=== PATIENT | female | born 1990 | race American Indian/Alaskan Native ===

== ENCOUNTER 2017-02-13 16:04 | Emergency (ER) | payer SELFPAY ==
[2017-02-13 17:46] VITALS: BP 127/84
== END 2017-02-14 05:15 | disposition left against medical advice (07) ==
LOC: ED 16:04
DX: R51 Headache (principal); Z53.21 Procedure and treatment not carried out due to patient leaving prior to being seen by health care provider

== ENCOUNTER 2017-02-14 22:17 | Emergency (ER) | payer SELFPAY ==
[2017-02-14 23:18] LABS: Basophils % (Auto) 2.2 % (0.0-1.8); Eosinophils % (Auto) 0.8 % (0.0-4.3); Hematocrit 26.7 % (30.3-42.9); Hemoglobin 8.4 gm/dl (10.1-14.3); Mean Corpuscular HGB Conc 32 % (30-34); Platelet Count 266 K/mm3 (140-440); Red Blood Count 3.98 M/mm3 (3.65-5.03); Red Cell Distribution Width 19.5 % (13.2-15.2); White Blood Count 5.5 K/mm3 (4.5-11.0)
[2017-02-14 23:36] LABS: Anion Gap 17 mmol/L; BUN/Creatinine Ratio 10; Blood Urea Nitrogen 7 mg/dL (7-17); Calcium 8.8 mg/dL (8.4-10.2); Carbon Dioxide 25 mmol/L (22-30); Chloride 102.9 mmol/L (98-107); Glucose 85 mg/dL (65-100); Potassium 3.9 mmol/L (3.6-5.0); Sodium 141 mmol/L (137-145)
[2017-02-14 23:40] LABS: Mean Corpuscular Hemoglobin 21 pg (28-32); Mean Corpuscular Volume 67 fl (79-97)
[2017-02-15 00:07] LABS: Bilirubin,Urine NEG (Negative); Blood,Urine NEG (Negative); Ketones,Urine NEG (Negative); Leukocyte Esterase,Urine MOD (Negative); Mucus,Urine FEW /HPF; Nitrite,Urine NEG (Negative); Protein,Urine <15 mg/dL mg/dL (Negative)
--- NOTE | 2017-02-15 00:17 | Cat Scan Report ---
FINAL REPORT PROCEDURE: CT HEAD/BRAIN WO CON TECHNIQUE: Computerized tomography of the head was performed without contrast material. HISTORY: Headache. COMPARISON: No prior studies are available for comparison. FINDINGS: Brain: Brain density appears normal. No evidence of intracranial hemorrhage. No parenchymal hemorrhage, mass lesions or mass effect are seen. No abnormal extraxial fluid collects or masses are seen. Ventricles: Ventricles are normal size and are midline. Bone Windows: No evidence of skull fracture. Paranasal sinuses: Visualized portions of the paranasal sinuses appear clear. Not all the paranasal sinuses are included on this exam. Mastoid air cells: Clear IMPRESSION: Negative unenhanced CT scan of the brain.
[2017-02-15] MEDS ORDERED: XYLOCAINE TOPICAL 4% TP ONE (08:03)
[2017-02-15] MEDS ORDERED: BENADRYL IV ONE (08:03)
[2017-02-15] MEDS ORDERED: MAGNESIUM SULFATE 2GM/50ML 2 GM/50 ML BAG IV ONE (08:03)
[2017-02-15] MEDS ORDERED: REGLAN IV ONE (08:03)
--- NOTE | 2017-02-15 08:06 | Emergency Department Report ---
ED Headache HPI - General Chief Complaint: Headache Stated Complaint: HEADACHE Time Seen by Provider: 02/15/17 07:47 Source: patient Exam Limitations: no limitations - History of Present Illness Initial Comments: This is a 26-year-old female. The patient is previously unknown to this provider. She does not have a primary care doctor locally, and she denies chronic medical conditions. She presents to the ER with headache. The headache has been present for 9 days. She reports the headache started suddenly 9 days ago, and has been constant. The headache was fairly sudden in onset, and is constant, and she reports this is the most intense headache of her life. She describes photophobia, no neck pain, no neck stiffness, no extremity weakness, or numbness. Patient indicates no trauma, and patient indicates that she does not have a chronic headache history, does not have a family history of aneurysms that she is aware of. Timing/Duration: 1 week, constant Quality: severe, constant Head Injury Location: global Recent Head Trauma: no recent headache/trauma Modifying Factors: worse with: exposure to light Associated Symptoms: denies: confusion, fatigue, facial pain, fever/chills, flushing, loss of consciousness, nasal congestion, nasal drainage, numbness in legs/feet, seizures, sinus infection, stiff neck, vision changes, weakness Allergies/Adverse Reactions: Allergies [place] And Derivatives Allergy (Verified 02/14/17 22:50) Hives Penicillins Allergy (Verified 02/14/17 22:50) Hives Home Medications: Ambulatory Orders Butalb/Acetamin/Caff 50-325-40 [Fioricet] 1 tab PO Q6HR PRN #20 tab 02/15/17 ED Review of Systems ROS: Stated complaint: HEADACHE Other details as noted in HPI Constitutional: malaise. denies: fever Eyes: eye pain ENT: denies: throat pain Respiratory: denies: cough Cardiovascular: denies: chest pain Gastrointestinal: denies: abdominal pain Genitourinary: denies: dysuria Musculoskeletal: denies: back pain Skin: denies: lesions Neurological: headache ED Past Medical Hx - Past Medical History Previous Medical History?: No - Surgical History Past Surgical History?: No - Social History Smoking Status: Former Smoker Substance Use Type: Alcohol - Medications Home Medications: Home Medications Medication Instructions Recorded Confirmed Last Taken Type Butalb/Acetamin/Caff 50-325-40 1 tab PO Q6HR PRN #20 tab 02/15/17 Unknown Rx [Fioricet] ED Physical Exam - General Limitations: No Limitations General appearance: alert, in distress - Head Head exam: Present: atraumatic, normocephalic - Eye Eye exam: Present: normal appearance, PERRL, EOMI, other (visual acuity intact to finger counting, color perception, reading at a close distance). Absent: nystagmus - ENT ENT exam: Present: normal exam, normal orophraynx, mucous membranes moist, TM's normal bilaterally, normal external ear exam, other (there is no mastoid tenderness) - Neck Neck exam: Present: normal inspection, full ROM. Absent: tenderness, meningismus, lymphadenopathy - Respiratory Respiratory exam: Present: normal lung sounds bilaterally. Absent: respiratory distress, wheezes, rales, rhonchi, stridor, chest wall tenderness - Cardiovascular Cardiovascular Exam: Present: regular rate, normal rhythm, normal heart sounds. Absent: bradycardia, tachycardia, irregular rhythm, systolic murmur, diastolic murmur, rubs, gallop - GI/Abdominal GI/Abdominal exam: Present: soft, normal bowel sounds. Absent: distended, tenderness, guarding, rebound, rigid, pulsatile mass - Extremities Exam Extremities exam: Present: normal inspection, full ROM, normal capillary refill. Absent: pedal edema, joint swelling, calf tenderness - Back Exam Back exam: Present: normal inspection, full ROM. Absent: tenderness, CVA tenderness (R), CVA tenderness (L), muscle spasm, paraspinal tenderness, vertebral tenderness - Neurological Exam Neurological exam: Present: alert, oriented X3, normal gait, other (Extraocular movements intact. Tongue midline. No facial droop. Facial sensation intact to light touch in the V1, V2, V3 distribution bilaterally. 5 and 5 strength in 4 extremities.. Sensation is intact to light touch in 4 extremities.). Absent : motor sensory deficit - Psychiatric Psychiatric exam: Present: anxious - Skin Skin exam: Present: warm, dry, intact, normal color. Absent: rash ED Course Vital Signs 02/14/17 02/15/17 02/15/17 22:50 03:50 10:14 Temperature 98.7 F 97.3 F L Pulse Rate 77 67 67 Respiratory 18 16 16 Rate Blood Pressure 122/67 128/72 Blood Pressure 134/80 [Right] O2 Sat by Pulse 100 100 100 Oximetry 02/15/17 11:48 Temperature Pulse Rate 77 Respiratory 16 Rate Blood Pressure Blood Pressure 123/75 [Right] O2 Sat by Pulse 100 Oximetry - Reevaluation(s) Reevaluation #1: 02/15/17 08:50 Differential diagnosis: Migraine headache, tension headache, cluster headache, subarachnoid hemorrhage Assessment and plan: 26-year-old female with a worse headache of her life for 9 days. Has some historical features which warrants further investigation for subarachnoid hemorrhage. There is no neck pain or neck stiffness, noncontrast CT scan of the brain is negative, no risk factors for DVT or venous sinus thrombosis. Patient will be treated symptomatically with Reglan, Benadryl, Solu -Medrol, magnesium, intranasal lidocaine via a spehopalatine ganglion block. Extensive discussion had with patient, fluoroscopically guided LP is pending to further risk stratify for subarachnoid hemorrhage. Has a GCS of 15, NIH score of 0, clinically sober. Reevaluation #2: 02/15/17 11:31 The patient continues to feel much improved. Her lumbar puncture is not consistent with subarachnoid hemorrhage. Walking with a steady gait, has a GCS of 15, and an anion score of 0. Patient will be discharged with pain medication which is not NSAID, and she is instructed to begin keeping a headache diary, and to follow up with outpatient neurology. Return precautions are reviewed. ED Medical Decision Making - Lab Data Result diagrams: 02/14/17 22:59 02/14/17 22:59 Vital Signs 02/14/17 02/15/17 22:50 03:50 Temperature 98.7 F 97.3 F L Pulse Rate 77 67 Respiratory 18 16 Rate Blood Pressure 122/67 128/72 O2 Sat by Pulse 100 100 Oximetry Lab Results 02/14/17 02/14/17 02/14/17 Range/Units 22:59 22:59 22:59 WBC 5.5 (4.5-11.0) K/mm3 RBC 3.98 (3.65-5.03) M/mm3 Hgb 8.4 L (10.1-14.3) gm/dl Hct 26.7 L (30.3-42.9) % MCV 67 L (79-97) fl MCH 21 L (28-32) pg MCHC 32 (30-34) % RDW 19.5 H (13.2-15.2) % Plt Count 266 (140-440) K/mm3 Lymph % (Auto) 37.1 H (13.4-35.0) % [place] % (Auto) 12.0 H (0.0-7.3) % Eos % (Auto) 0.8 (0.0-4.3) % Baso % (Auto) 2.2 H (0.0-1.8) % Lymph # 2.1 (1.2-5.4) K/mm3 [place] # 0.7 (0.0-0.8) K/mm3 Eos # 0.0 (0.0-0.4) K/mm3 Baso # 0.1 (0.0-0.1) K/mm3 Seg Neutrophils % 47.9 (40.0-70.0) % Seg Neutrophils # 2.7 (1.8-7.7) K/mm3 PT (12.2-14.9) Sec. INR (0.87-1.13) APTT (24.2-36.6) Sec. Sodium 141 (137-145) mmol/L Potassium 3.9 (3.6-5.0) mmol/L Chloride 102.9 (98-107) mmol/L Carbon Dioxide 25 (22-30) mmol/L Anion Gap 17 mmol/L BUN 7 (7-17) mg/dL Creatinine 0.7 (0.7-1.2) mg/dL Estimated GFR > 60 ml/min BUN/Creatinine Ratio 10 % Glucose 85 (65-100) mg/dL Calcium 8.8 (8.4-10.2) mg/dL HCG, Qual Negative (Negative) Urine Color (Yellow) Urine Turbidity (Clear) Urine pH (5.0-7.0) Ur Specific [place] (1.003-1.030) Urine Protein (Negative) mg/dL Urine Glucose (UA) (Negative) mg/dL Urine Ketones (Negative) mg/dL Urine Blood (Negative) Urine Nitrite (Negative) Urine Bilirubin (Negative) Urine Urobilinogen (<2.0) mg/dL Ur Leukocyte Esterase (Negative) Urine WBC (Auto) (0.0-6.0) /HPF Urine RBC (Auto) (0.0-6.0) /HPF U Epithel Cells (Auto) (0-13.0) /HPF Urine Mucus /HPF 02/14/17 02/15/17 Range/Units Unknown 08:07 WBC (4.5-11.0) K/mm3 RBC (3.65-5.03) M/mm3 Hgb (10.1-14.3) gm/dl Hct (30.3-42.9) % MCV (79-97) fl MCH (28-32) pg MCHC (30-34) % RDW (13.2-15.2) % Plt Count (140-440) K/mm3 Lymph % (Auto) (13.4-35.0) % [place] % (Auto) (0.0-7.3) % Eos % (Auto) (0.0-4.3) % Baso % (Auto) (0.0-1.8) % Lymph # (1.2-5.4) K/mm3 [place] # (0.0-0.8) K/mm3 Eos # (0.0-0.4) K/mm3 Baso # (0.0-0.1) K/mm3 Seg Neutrophils % (40.0-70.0) % Seg Neutrophils # (1.8-7.7) K/mm3 PT 14.7 (12.2-14.9) Sec. INR 1.09 (0.87-1.13) APTT 31.1 (24.2-36.6) Sec. Sodium (137-145) mmol/L Potassium (3.6-5.0) mmol/L Chloride (98-107) mmol/L Carbon Dioxide (22-30) mmol/L Anion Gap mmol/L BUN (7-17) mg/dL Creatinine (0.7-1.2) mg/dL Estimated GFR ml/min BUN/Creatinine Ratio % Glucose (65-100) mg/dL Calcium (8.4-10.2) mg/dL HCG, Qual (Negative) Urine Color Yellow (Yellow) Urine Turbidity Clear (Clear) Urine pH 7.0 (5.0-7.0) Ur Specific [place] 1.020 (1.003-1.030) Urine Protein <15 mg/dl (Negative) mg/dL Urine Glucose (UA) Neg (Negative) mg/dL Urine Ketones Neg (Negative) mg/dL Urine Blood Neg (Negative) Urine Nitrite Neg (Negative) Urine Bilirubin Neg (Negative) Urine Urobilinogen 4.0 (<2.0) mg/dL Ur Leukocyte Esterase Mod (Negative) Urine WBC (Auto) 1.0 (0.0-6.0) /HPF Urine RBC (Auto) 1.0 (0.0-6.0) /HPF U Epithel Cells (Auto) 6.0 (0-13.0) /HPF Urine Mucus Few /HPF - Radiology Data Radiology results: report reviewed, image reviewed Noncontrast CT scan of the brain is negative for acute disease Critical care attestation.: If time is entered above; I have spent that time in minutes in the direct care of this critically ill patient, excluding procedure time. ED Disposition Clinical Impression: Headache Disposition: DC-01 TO HOME OR SELFCARE Is pt being admited?: No Does the pt Need Aspirin: No Condition: Stable Instructions: Acute Headache (ED) Additional Instructions: Take the pain medication as directed. Headache may potentially get worse after the spinal tap. This is normal and expected. Drink plenty of fluids, caffeinated fluids are also acceptable. Avoid consumption of ibuprofen, Motrin , Aleve for the next 72 hours. Take the headache medication as directed, and begin keeping headache diary. Follow up with a neurology specialist or primary care doctor within the next month. Headache diary instructions can be found at the following website address: http://www.headaches.org/wp-content/uploads/015647911-Ewbuezga-Qlgkk- ryhw-ndq-Skmxrlpy-Headache-Foundation.pdf Prescriptions: Butalb/Acetamin/Caff 50-325-40 [Fioricet] 1 tab PO Q6HR PRN #20 tab PRN Reason: Headache Referrals: PRIMARY CARE, [Primary Care Provider] - 3-5 Days JESUSITA BELTRÁN MD [Staff Physician] - 3-5 Days MARLYN CALLAHAN MD [Staff Physician] - 3-5 Days RIA PERKINS MD [Staff Physician] - 3-5 Days
[2017-02-15 08:40] LABS: INR 1.09 (0.87-1.13)
[2017-02-15 08:41] LABS: Partial Thromboplastin Time 31.1 Sec. (24.2-36.6)
[2017-02-15 10:42] LABS: Glucose,CSF 56 mg/dL
--- NOTE | 2017-02-15 10:52 | Fluoroscopy Report ---
Lumbar puncture with fluoroscopic guidance. Procedure: The patient's skin surface overlying the lumbar region was prepped and draped using sterile technique. Local anesthetic was injected in the skin. Using fluoroscopic guidance, an 18-gauge spinal needle was placed into the subarachnoid space at the L3-4 level. CSF was clear. Approximately 16 cc of CSF was collected and sent for laboratory. The patient tolerated the procedure well clinically.
[2017-02-15 10:53] LABS: Appearance,CSF Clear; White Blood Cell,CSF 0 /mm3 (1-10)
[2017-02-15 10:54] LABS: Appearance,CSF Clear; White Blood Cell,CSF 1 /mm3 (1-10)
[2017-02-15 11:06] LABS: Basophils CSF 0 %; CSF Diff Status Complete
[2017-02-15 11:08] LABS: Basophils CSF 0 %; CSF Diff Status Complete
[2017-02-15 11:49] VITALS: BP 123/75
== END 2017-02-15 11:48 | disposition home or self-care (01) ==
LOC: ED 22:17
DX: R51 Headache (principal); Z87.891 Personal history of nicotine dependence; Z88.0 Allergy status to penicillin; Z91.018 Allergy to other foods
CPT/HCPCS: 36415; 62270; 70450; 77003; 80048; 81001; 82947; 84160; 84703; 85025; 85610; 85730; 87116; 89051; 96365; 96366; 96375; 99284; J1200; J2765; J2930; J3475